=== PATIENT | male | born 1950 | race Caucasian/White ===

== ENCOUNTER 2017-02-11 18:37 | Emergency (ER) | payer BC ==
[~2017-02-11] VITALS: Ht 177.8 cm; Wt 135.0 kg
[2017-02-11 18:55] VITALS: BP 165/73; PULSE 81; RESP 20; TEMP 98.6
--- NOTE | 2017-02-11 19:40 | RADRPT ---
EXAM DATE/TIME: 02/11/2017 19:19 [place] COMPARISON: No previous studies available for comparison. INDICATIONS : Trauma, Fall. Abrasion to top of head. RADIATION DOSE: 60.21 CTDIvol (mGy) MEDICAL HISTORY : Cardiovascular disease. SURGICAL HISTORY : None. ENCOUNTER: Initial ACUITY: 1 day PAIN SCALE: 3/10 LOCATION: cranial TECHNIQUE: Multiple contiguous axial images were obtained of the head. Using automated exposure control and adj ustment of the mA and/or kV according to patient size, radiation dose was kept as low as reasonably a chievable to obtain optimal diagnostic quality images. FINDINGS: CEREBRUM: The ventricles are normal for age. No evidence of midline shift, mass lesion, hemorrhage or acute in farction. No extra-axial fluid collections are seen. POSTERIOR FOSSA: The cerebellum and brainstem are intact. The 4th ventricle is midline. The cerebellopontine angle i s unremarkable. EXTRACRANIAL: The visualized portion of the orbits is intact. There is a right frontal scalp hematoma. SKULL: The calvaria is intact. No evidence of skull fracture. CONCLUSION: 1. No acute intracranial abnormalities. Right frontal scalp hematoma. Raad Schultz MD on February 11, 2017 at 19:36 Board Certified Radiologist. This report was verified electronically.
--- NOTE | 2017-02-11 19:48 | PD ---
HPI Chief Complaint: Fall Time Seen by Provider: 19:43 Travel History International Travel<30 days: No Contact w/Intl Traveler<30days: No Traveled to known affect area: No History of Present Illness HPI 66-year-old male that presents to the ED for evaluation of head injury. Patient came here by ambulance for evaluation of this. Per patient he was at a restaurant when he tripped and fell and landed headfirst in the side of a door. Per family and patient the impact was severe. Patient denies any pain other than to his head. Per patient he does have some stiffness to his neck but he denies any pain and is able to move his neck fully. Patient was not put on backboard or cervical immobilization. Patient was ambulating in no sign of distress. Patient does have an abrasion to his right forehead. Patient does have some bruising noted on the right forehead. Per patient initially he had some left shoulder pain but now he doesn't anymore. He is able to move it fully. Patient does tell me that he takes aspirin. He used to take blood thinners but not anymore. He is concerned more about internal bleeding. He denies any chest pain or shortness of breath. No abdominal pain. No arm or leg pain. Patient states that he is up-to-date with his vaccinations including tetanus. Patient's pain is 2 out of 10 and mostly on the head. Patient denies losing consciousness. No syncopal episode before or after the event. No other medical complaints. PFSH Past Medical History Hx Anticoagulant Therapy: Yes (Just a BASA for valve relpacement) Cardiovascular Problems: Yes Social History Alcohol Use: Yes Tobacco Use: No Substance Use: No Review of Systems Except as stated in HPI: all other systems reviewed are Neg Physical Exam Narrative GENERAL: SKIN: Warm and dry. HEAD: Atraumatic. Normocephalic. Patient has a significant hematoma noted on the right forehead. Abrasion noted as well but no sign of laceration. Minimal bleeding noted. EYES: Pupils equal and round 4 mm reactive to light and accommodation. No scleral icterus. No injection or drainage. ENT: No nasal bleeding or discharge. Mucous membranes pink and moist. Tongue is midline. No uvula deviation. NECK: Trachea midline. No JVD. CARDIOVASCULAR: Regular rate and rhythm. No murmurs, S3, S4. RESPIRATORY: No accessory muscle use. Clear to auscultation. Breath sounds equal bilaterally. GASTROINTESTINAL: Abdomen soft, non-tender, nondistended. Hepatic and splenic margins not palpable. MUSCULOSKELETAL: Extremities without clubbing, cyanosis, or edema. No obvious deformities. Full range of motion of the upper and lower extremities bilaterally. 2+ pulses bilaterally. No cervical, thoracic, lumbar spine tenderness to palpation. Full range of motion of the left shoulder with no sign of bruising or deformity. Patient has no pain on the shoulder. No pain with range of motion of the neck. NEUROLOGICAL: Awake and alert. No obvious cranial nerve deficits. Motor grossly within normal limits. Five out of 5 muscle strength in the arms and legs. Normal speech. PSYCHIATRIC: Appropriate mood and affect; insight and judgment normal. Data Data Last Documented VS Vital Signs Date Time Temp Pulse Resp B/P Pulse Ox O2 Delivery O2 Flow Rate FiO2 02/11/17 19:03 80 96 Nasal Cannula 02/11/17 18:55 98.6 20 165/[address] Brain W/O Iv Contrast(Rout) (02/11/17 ) Ice/Cold Pack (02/11/17 19:34) MDM Medical Decision Making Medical Screen Exam Complete: Yes Emergency Medical Condition: Yes Medical Record Reviewed: Yes Interpretation(s) CT of the head showed no sign of acute disease other than scalp hematoma Differential Diagnosis Head injury versus concussion versus ICH versus fracture Narrative Course 66-year-old male that presents to the ED for evaluation of head injury. Patient was properly examined and was found to have signs and symptoms consistent appears to be hematoma to the forehead. No other sign of acute disease. Patient did not lose consciousness. He is not nauseous or vomiting. No sign of traumatic brain injury. Patient is neurovascular intact. Apparently patient initially complained of some shoulder pain but he states that now he feels fine. He has no signs of trauma to the shoulder. X-ray was offered for the shoulder but he declined. Patient more concerned about the brain. CT of the head was ordered. CT of the head was negative other than for hematoma. Patient was reassured. At this time I recommend Motrin or Tylenol for pain. Ice to the area. Patient was told that the swelling and bruising might worsen before it gets better. Patient was given a prescription for Bactroban to apply to the abrasion. Apply ice to the area. Follow with PCP. See ED for any worsening symptoms. Avoid alcoholic beverages for the next 2 days. Diagnosis Primary Impression: Head injury, acute Qualified Code: S09.90XA - Head injury, acute, initial encounter Additional Impressions: Abrasion head Hematoma Patient Instructions: General Instructions Additional Instructions: Motrin or Tylenol for pain. Follow with PCP. See ED for worsening symptoms. Ice to the area. Apply ice as prescribed. Med/Other Pt SpecificInfo: Prescription(s) given Disposition: 01 DISCHARGE HOME Condition: Stable Ez Wren February 11, 2017 19:48
[2017-02-11] MEDS ORDERED: BACT2OIN TOPICAL (19:50)
== END 2017-02-11 20:35 | disposition home or self-care (01) ==
LOC: NEPE 18:37
DX: S00.83XA Contusion of other part of head, initial encounter (principal); W01.0XXA Fall on same level from slipping, tripping and stumbling without subsequent striking against object, initial encounter; Y92.511 Restaurant or cafe as the place of occurrence of the external cause
CPT/HCPCS: 70450